=== PATIENT | male | born 1970 | race Caucasian/White ===

== ENCOUNTER 2017-12-13 18:20 | Emergency (ER) | payer BC ==
[2017-12-13 21:03] LABS: ABS Basophils 0 10^3/ul (0-0.2); ABS Eosinophils 0 10^3/ul (0-0.6); ABS Lymphocytes 1.3 10^3/ul (1.0-4.8); ABS Monocytes 0.4 10^3/ul (0-0.8); ABS Neutrophils 5.1 10^3/ul (1.5-7.7); ABS Nucleated RBC 0 10^3/ul; Eosinophil % 0 % (0-6); Hematocrit 42 % (42-52); Hemoglobin 13.7 g/dl (14.0-18.0); Lymphocyte % 19.2 % (25-47); Mean Corpuscular HGB Conc 33 g/dl (31-36); Mean Corpuscular Hemoglobin 26 pg (27-31); Mean Corpuscular Volume 80 fL (80-94); Mean Platelet Volume 7.7 um3 (7.4-10.4); Nucleated Red Blood Cells % 0; Platelet Count 257 10^3/ul (150-450); Red Blood Count 5.25 10^6/ul (4.00-5.40); Red Cell Distribution Width 14 % (10.5-15); White Blood Count 6.8 10^3/ul (3.5-10.8)
[2017-12-13 21:09] LABS: INR 0.94 (0.77-1.02)
--- NOTE | 2017-12-13 21:29 | ED ---
HPI Chest Pain - HPI Summary HPI Summary: Patient complains of intermittent chest tightness usually worse at night 2 weeks. Also complains of recurrent back pain and current exacerbation of same. Patient went to primary care for evaluation of back pain exacerbation and was sent to the ED for further evaluation of chest pain. Chest tightness is on left side, lasts about 10 minutes, no radiations, new onset, not related to exertion. Denies active chest pain at this time. Back pain is bilateral low back pain, denies radiation down bilateral lower extremities, incontinence, urinary retention. History of same pain. Denies fever, cough, sore throat, SOB , N/V/D, abdominal pain, change in urine, change in BM. Admits to significant increase in recent stress. Denies any CP or SOB with exertion, or decrease in endurance during exertion. Med history is none. Denies prior cardiac history. Positive family cardiac history. Denies smoking, EtOH, illegal drug use. - History of Current Complaint Chief Complaint: EDChestPainROMI Time Seen by Provider: 12/13/17 20:33 Hx Obtained From: Patient Onset/Duration: Started Weeks Ago Timing: Intermittent, Lasting Minutes Initial Severity: Mild Current Severity: None Pain Intensity: 0 Pain Scale Used: 0-10 Numeric Chest Pain Location: Left Anterior Chest Pain Radiates: No Character: Tightness Aggravating Factor(s): Other: Alleviating Factor(s): Nothing Associated Signs and Symptoms: Positive: Chest Pain, Anxiety - Allergy/Home Medications Allergies/Adverse Reactions: Allergies Allergy/AdvReac Type Severity Reaction Status Date / Time No Known Allergies Allergy Verified 12/13/17 21:16 PMH/Surg Hx/FS Hx/Imm Hx Endocrine/Hematology History: Denies: Hx Anticoagulant Therapy, Hx Diabetes Cardiovascular History: Denies: Hx Cardiac Arrest, Hx Hypertension, Hx Pacemaker/ICD History: Denies: Hx Dialysis, Hx Renal Disease - HAS HAD KIDNEY STONES Sensory History: Denies: Hx Hearing Aid Neurological History: Denies: Hx CVA Psychiatric History: Denies: Hx Panic Disorder - Surgical History Surgery Procedure, Year, and Place: APPENDIX - Immunization History Immunizations Up to Date: Yes Infectious Disease History: No Infectious Disease History: Denies: Traveled Outside the [place] in Last 30 Days - Social History Alcohol Use: None Substance Use Type: Reports: None Smoking Status (MU): Never Smoked Tobacco Review of Systems Constitutional: Negative Eyes: Negative ENT: Negative Positive: Chest Pain Respiratory: Negative Gastrointestinal: Negative Genitourinary: Negative Musculoskeletal: Negative Skin: Negative Neurological: Negative Psychological: Normal All Other Systems Reviewed And Are Negative: Yes Physical Exam - Summary Physical Exam Summary: No pain with palpation of lower back. No ecchymosis, erythema, swelling, deformity noted to lower back. Triage Information Reviewed: Yes Vital Signs On Initial Exam: Initial Vitals Temp Pulse Resp BP Pulse Ox 98.6 F 78 16 138/70 99 12/13/17 18:23 12/13/17 18:23 12/13/17 18:23 12/13/17 18:23 12/13/17 18:23 Vital Signs Reviewed: Yes Appearance: Positive: Well-Appearing Skin: Positive: Warm Head/Face: Positive: Normal Head/Face Inspection Eyes: Positive: Normal Neck: Positive: Supple Respiratory/Lung Sounds: Positive: Clear to Auscultation Cardiovascular: Positive: Normal Abdomen Description: Positive: Nontender Musculoskeletal: Positive: Normal Neurological: Positive: Normal Psychiatric: Positive: Normal AVPU Assessment: Alert - [place] Coma Scale Best Eye Response: 4 - Spontaneous Best Motor Response: 6 - Obeys Commands Best Verbal Response: 5 - Oriented Coma Scale Total: 15 Diagnostics - Vital Signs Vital Signs Temp Pulse Resp BP Pulse Ox 12/13/17 18:23 98.6 F 78 16 138/70 99 - Laboratory Lab Results: Lab Results 12/13/17 12/13/17 12/13/17 Range/Units 20:47 20:47 20:47 WBC 6.8 (3.5-10.8) 10^3/ul RBC 5.25 (4.00-5.40) 10^6/ul Hgb 13.7 L (14.0-18.0) g/dl Hct 42 (42-52) % MCV 80 (80-94) fL MCH 26 L (27-31) pg MCHC 33 (31-36) g/dl RDW 14 (10.5-15) % Plt Count 257 (150-450) 10^3/ul MPV 7.7 (7.4-10.4) um3 Neut % (Auto) 75.2 (38-83) % Lymph % (Auto) 19.2 L (25-47) % Tate % (Auto) 5.4 (0-7) % Eos % (Auto) 0 (0-6) % Baso % (Auto) 0.2 (0-2) % Absolute Neuts (auto) 5.1 (1.5-7.7) 10^3/ul Absolute Lymphs (auto) 1.3 (1.0-4.8) 10^3/ul Absolute Monos (auto) 0.4 (0-0.8) 10^3/ul Absolute Eos (auto) 0 (0-0.6) 10^3/ul Absolute Basos (auto) 0 (0-0.2) 10^3/ul Absolute Nucleated RBC 0 10^3/ul Nucleated RBC % 0 INR (Anticoag Therapy) 0.94 (0.77-1.02) Sodium Pending Potassium Pending Chloride Pending Carbon Dioxide Pending Anion Gap Pending BUN Pending Creatinine Pending Est GFR ( Amer) Pending Est GFR (Non-Af Amer) Pending BUN/Creatinine Ratio Pending Glucose Pending Calcium Pending Total Bilirubin Pending AST Pending ALT Pending Alkaline Phosphatase Pending Troponin I 0.00 (<0.04) ng/mL Total Protein Pending Albumin Pending Globulin Pending Albumin/Globulin Ratio Pending Result Diagrams: 12/13/17 20:47 12/13/17 20:47 Lab Statement: Any lab studies that have been ordered have been reviewed, and results considered in the medical decision making process. - Radiology cxr Xray Interpretation: No Acute Changes Radiology Interpretation Completed By: ED Physician Chest Pain Course/Dx - Course Course Of Treatment: Patient complains of intermittent chest tightness usually worse at night 2 weeks. Also complains of recurrent back pain and current exacerbation of same. Patient went to primary care for evaluation of back pain exacerbation and was sent to the ED for further evaluation of chest pain. Chest tightness is on left side, lasts about 10 minutes, no radiations, new onset, not related to exertion. Denies active chest pain at this time. Back pain is bilateral low back pain, denies radiation down bilateral lower extremities, incontinence, urinary retention. History of same pain. Denies fever, cough, sore throat, SOB, N/V/D, abdominal pain, change in urine, change in BM. Admits to significant increase in recent stress. Denies any CP or SOB with exertion, or decrease in endurance during exertion. Med history is none. Denies prior cardiac history. Positive family cardiac history. Denies smoking, EtOH, illegal drug use. Physical exam:No pain with palpation of lower back. No ecchymosis, erythema, swelling, deformity noted to lower back. Vital signs normal. EKG unremarkable. Chest x-ray unremarkable. Labs unremarkable. Chest pain nonexertional. More likely related to increasing recent stress. Back pain likely muscle spasm. - Diagnoses Provider Diagnoses: Atypical chest pain, Anxiety, Back pain Discharge - Sign-Out/Discharge Documenting (check all that apply): Patient Departure - Discharge Plan Condition: Stable Disposition: HOME Prescriptions: hydrOXYzine pamoate [Vistaril] 50 - 100 mg PO BID PRN 15 Days #30 capsule PRN Reason: Anxiety predniSONE TAB* [Deltasone 20 MG TAB*] 40 mg PO DAILY 5 Days #5 tab Patient Education Materials: Acute Low Back Pain (ED), Anxiety (ED) Print Language: BENGALI Forms: *Work Release Referrals: Josiah Snowden MD [Primary Care Provider] - Additional Instructions: Follow-up with primary care. Return to the ED for any new or worsening symptoms - Billing Disposition and Condition Condition: STABLE Disposition: Home
[2017-12-13 22:06] LABS: EGFR Non-African American 110.9 (>60)
[2017-12-13] MEDS ORDERED: predniSONE TAB* 20 MG PO ONE (22:30)
[2017-12-13 22:35] VITALS: BP 120/76
--- NOTE | 2017-12-14 08:08 | RAD ---
HISTORY: cp COMPARISONS: February 05, 2010 VIEWS: 1: frontal portable view of the chest at 8:54 AM. The patient is slightly obliqued to the right. FINDINGS: LINES AND TUBES: None. CARDIOMEDIASTINAL SILHOUETTE: The cardiomediastinal silhouette is normal for portable technique. PLEURA: The costophrenic angles are sharp. No pleural abnormalities are noted. LUNG PARENCHYMA: The lungs are clear. ABDOMEN: The upper abdomen is clear. There is no subphrenic gas. BONES AND SOFT TISSUES: No bone or soft tissue abnormalities are noted. IMPRESSION: NO ACTIVE CARDIOPULMONARY DISEASE. R0
== END 2017-12-13 22:34 | disposition home or self-care (01) ==
LOC: ED 18:20
DX: R07.89 Other chest pain (principal); F41.9 Anxiety disorder, unspecified; M54.9 Dorsalgia, unspecified; Z82.49 Family history of ischemic heart disease and other diseases of the circulatory system
CPT/HCPCS: 36415; 71045; 80053; 83880; 84484; 85025; 85610; 93005; 99282

== ENCOUNTER 2019-06-12 05:22 | Emergency (ER) | payer BC, OTHER ==
[2019-06-12] MEDS ORDERED: Ibuprofen TAB* 600 MG PO ONE (05:39)
[2019-06-12] MEDS ORDERED: Tetan/Diph/Pertus SYR(Tdap)* 0.5 ML SYR(BOOSTRIX) use SYR contains LATEX IM ONE (05:39)
[2019-06-12] MEDS ORDERED: Lidocaine 1% MPF ** 5 ML VIAL INJ ONE ×2 (05:39→07:42)
--- NOTE | 2019-06-12 05:40 | ED ---
Laceration/Wound HPI - HPI Summary HPI Summary: Patient is a 48-year-old male who presents emergency department for right hand injury that occurred today. Patient works at [employer] and was passing dose through a large roller when his left second and third digits extremity got caught in roller. Unaware of last tetanus immunization. No past medical history. Symptoms are mild in severity. Moving digits makes symptoms worse. Nothing makes symptoms better. - History of Current Complaint Stated Complaint: FINGER INJURY PER PT Hx Obtained From: Patient Pain Intensity: 10 - Allergy/Home Medications Allergies/Adverse Reactions: Allergies Allergy/AdvReac Type Severity Reaction Status Date / Time No Known Allergies Allergy Verified 12/13/17 21:16 Home Medications: Home Medications Cephalexin CAP* [Keflex CAP*] 500 mg PO BID #20 cap 06/12/19 [Rx] DOXYcycline CAP(*) [DOXYcycline 100MG CAP(*)] 100 mg PO BID 06/12/19 [History Confirmed 06/12/19] PMH/Surg Hx/FS Hx/Imm Hx Previously Healthy: Yes Endocrine/Hematology History: Denies: Hx Anticoagulant Therapy, Hx Diabetes Cardiovascular History: Denies: Hx Cardiac Arrest, Hx Hypertension, Hx Pacemaker/ICD History: Denies: Hx Dialysis, Hx Renal Disease Sensory History: Denies: Hx Hearing Aid Neurological History: Denies: Hx CVA Psychiatric History: Denies: Hx Panic Disorder - Surgical History Surgery Procedure, Year, and Place: APPENDECTOMY Infectious Disease History: No Infectious Disease History: Denies: Traveled Outside the [place] in Last 30 Days - Family History Known Family History: Positive: Non-Contributory - Social History Occupation: Employed Full-time Lives: With Family Alcohol Use: None Substance Use Type: Reports: None Smoking Status (MU): Never Smoked Tobacco Review of Systems Positive: Other - pain second third digits of right hand Positive: Other - laceration secondary digits of right hand Neurological/Mental Status: Negative Negative: Weakness, Paresthesia, Numbness All Other Systems Reviewed And Are Negative: Yes Physical Exam Triage Information Reviewed: Yes Vital Signs On Initial Exam: Initial Vitals Temp Pulse Resp BP Pulse Ox 97.5 F 62 20 133/84 99 06/12/19 05:24 06/12/19 05:24 06/12/19 05:24 06/12/19 05:24 06/12/19 05:24 Vital Signs Reviewed: Yes Appearance: Positive: Pain Distress - Pt. pacing around room, appears in pain but nontoxic. Skin: Positive: Warm, Dry Head/Face: Positive: Normal Head/Face Inspection Eyes: Positive: Normal, EOMI Neck: Positive: Supple Musculoskeletal: Positive: Other - 2nd digit right hand: Nail bed exposed. 2cm irregular laceration noted to palmar aspect distally. Full ROM of digit. 3rd digit right hand. Avulsion of skin overlying nailbed but nailbed is intact. 3cm irregular laceration noted to distal palmar aspect of digit. Full ROM. Mild active bleeding. Neurological: Positive: Normal, CN Intact II-III Psychiatric: Positive: Affect/Mood Appropriate Procedures - Sedation Patient Received Moderate/Deep Sedation with Procedure: No - Splinting Right Upper Extremity Hand-Made Type: orthoglass Splint: volar Pre-Proc Neuro Vasc Exam: normal Post-Proc Neuro Vasc Exam: normal Splint Applied by Provider: Diego Miller - Laceration/Wound Repair 1 Location: upper extremity - 3rd digit Description: Irregular Anesthesia: Local, Digital, 1.0%, Lido Length, Depth and Shape: 2cm irregular Betadine Prep?: Yes Irrigated w/ Saline (ccs): 200 Laceration/Wound Explored: clean Closure: Single Layer Debridement: minimal Suture Type: Nylon Number of Sutures: 10 - Nailbed reattached Layer Closure?: No Sterile Dressing Applied?: Yes 2 Location: upper extremity - 2nd digit Description: Irregular Anesthesia: Local, Digital, Lido Length, Depth and Shape: 3cm irregular Betadine Prep?: Yes Irrigated w/ Saline (ccs): 200 Laceration/Wound Explored: clean Closure: Single Layer Debridement: minimal Suture Type: Nylon Number of Sutures: 5 Layer Closure?: No Sterile Dressing Applied?: Yes Diagnostics - Vital Signs Vital Signs Temp Pulse Resp BP Pulse Ox 06/12/19 05:24 97.5 F 62 20 133/84 99 - Laboratory Lab Statement: Any lab studies that have been ordered have been reviewed, and results considered in the medical decision making process. Laceration Repair Course/Dx - Course Course Of Treatment: Patient with extensive lacerations from crush injury to second and third digits of right hand. Tetanus updated. Digital blocks placed for pain control as well as ibuprofen. Wounds were extensively irrigated and cleaned. Nailbeds repaired the lacerations closed. Volar splint placed for comfort. Patient notes that he is currently on doxycycline for infection around his right second male. He notes that infection was not improving with antibiotics. Patient placed on Keflex. No obvious signs of infection on exam or signs of abscess to digit. We'll patient follow-up with orthopedic clinic Monday or Monday for wound check. Suture removal in 10-14 days. The Keflex prescribed. Ice and elevate intermittently. Ibuprofen or Tylenol for pain as directed. Work excuse given. We'll return to the ER for redness, swelling or drainage from wound. Patient understands and agrees with plan. - Differential Dx Differental Diagnoses: Avulsion, Laceration, Tendon Laceration - Clinical Impression Provider Diagnoses: Laceration of finger nail bed, Nailbed injury, Finger laceration Discharge ED - Sign-Out/Discharge Documenting (check all that apply): Patient Departure - Discharge Plan Condition: Improved Disposition: HOME Prescriptions: Cephalexin CAP* [Keflex CAP*] 500 mg PO BID #20 cap Patient Education Materials: Finger Laceration (ED) Forms: *Work Release Referrals: Josiah Snowden MD [Primary Care Provider] - Germaine Stewart MD [Medical Doctor] - Additional Instructions: Please schedule an appointment with the orthopedic clinic for wound check for Monday or Monday Suture removal in 10-14 days Keep wound clean and dry Daily dressing changes Wash with warm soap and water in the morning and night Apply over the counter antibiotic ointment Take new antibiotic as directed Ice and elevate hand 400mg-600mg ibuprofen every 6 hours as directed for pain Return to ER for redness, swelling, drainage from wound or if concerned - Billing Disposition and Condition Condition: IMPROVED Disposition: Home
[2019-06-12] MEDS ORDERED: Lidocaine 1% MPF ** 5 ML VIAL ONE ×2 (05:47→06:48)
--- OUTSIDE RECORDS SUMMARY | 2019-06-12 06:50 | XMS REPORT | Summary of Care ---
:1970 Author Organization [facility] Address [address] [facility] [place] [address] Care Team Providers Name Role Phone Josiah Snowden MD Primary Care Provider Reason for Referral Refer to Department Only (Routine) Status Reason Specialty Diagnoses / Referred By Referred To Procedures Contact Contact Closed Physical Therapy Diagnoses Quadriceps tendinitis Claus Fontenot, [facility] [address] [place] [address] Reason for Visit Reason Comments New Patient x rays left knee uncomfortable feeling about 1.5 months Encounter Details Date Type Department Care Team Description 04/23/2019 Office Visit [facility] - Claus Fontenot MD Quadriceps tendinitis [address] (Primary Dx) [address] [place] [address] [place] [address] [phone] Allergies No Known Allergiesdocumented as of this encounter (statuses as of 04/24/2019) Medications Medication Sig Dispensed Refills Start Date End Date Status IBUPROFEN 200 PO Take 200 mg by mouth 0 Active NEEDED. documented as of this encounter (statuses as of 04/24/2019) Active Problems No known active problemsdocumented as of this encounter (statuses as of 2019) Social History Tobacco Use Types Packs/Day Years Used Date Never Smoker Smokeless Tobacco: Never Used Sex Assigned at Date Recorded Not on file Job Start Date Occupation Industry Not on file Not on file Not on file Travel History Travel Start Travel End No recent travel history available. documented as of this encounter Last Filed Vital Signs Vital Sign Reading Time Taken Comments Blood Pressure 126/78 04/23/2019 8:52 AM EST Pulse - - Temperature - - Respiratory Rate - - Oxygen Saturation - - Inhaled Oxygen Concentration - - Weight 70.3 kg (155 lb) 04/23/2019 8:52 AM EST Height 172.7 cm (5' 8") 04/23/2019 8:52 AM EST Body Mass Index 23.57 04/23/2019 8:52 AM EST documented in this encounter Progress Notes Claus Fontenot MD - 04/23/2019 8:45 AM EST Name: Jennifer Laguna : 1970 Date of Service: 04/23/2019 Referring Provider: Self-Referred Primary Care Provider: Josiah Snowden Chief Complaint Patient presents with New Patient x rays left knee uncomfortable feeling about 1.5 months History of Present Illness: Jennifer Laguna is a 48-y.o. male who presents for a new visit. The patient presents with left knee pain and problem. Current symptoms include: pain: intensity 4/10. Onset of the symptoms was several weeks ago. Inciting event: no known event. Aggravating symptoms:going up and down stairs, walking, pivoting. Patient's overall course: stable. Patient has had no prior lower extremity problems. 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 No pertinent surgical history. Current Outpatient Medications Medication Sig IBUPROFEN 200 PO Take 200 mg by mouth NEEDED. No current facility-administered medications for this visit. . No Known Allergies Social History Socioeconomic History Marital status: Spouse name: Not on file Number of children: Not on file Years of education: Not on file Highest education level: Not on file Occupational History Not on file Social Needs Financial resource strain: Not on file Food insecurity Worry: Not on file Inability: Not on file Transportation needs Medical: Not on file Non-medical: Not on file Tobacco Use Smoking status: Never Smoker Smokeless tobacco: Never Used Substance and Sexual Activity Alcohol use: Not on file Drug use: Not on file Sexual activity: Not on file Lifestyle Physical activity Days per week: Not on file Minutes per session: Not on file Stress: Not on file Relationships Social connections Talks on phone: Not on file Gets together: Not on file Attends faith service: Not on file Active member of club or organization: Not on file Attends meetings of clubs or organizations: Not on file Relationship status: Not on file Intimate partner violence Fear of current or ex partner: Not on file Emotionally abused: Not on file Physically abused: Not on file Forced sexual activity: Not on file Other Topics Concern Not on file Social History Narrative Not on file Family History Problem Relation Age of Onset Heart Disease Mother High Blood Pressure Mother Arthritis Mother Diabetes Father ROS: Review of systems intake completed by clinical staff. I have reviewed and agree with their documentation. Physical Examination: BP 126/78 | Ht 5' 8" (1.727 m) | Wt 155 lb (70.3 kg) | BMI 23.57 kg/m Patient was examined in the supine position. He has a minimal effusion. Patient has extension 0, flexion 130. Patient has tenderness on palpation of the superior pole of the patella. Patient has no tenderness on palpation of thelateral and medial joint line. Patient has Negative Melissa's test with respect to the medial and lateral joint line. Patient has Negative Fernando's test at 25 - 30 degrees flexion. Patient has Negative Tong's test. . Patient walks without an antalgic gait with respect to the left extremity. X-Ray: X-rays of left knee, Ap, lateral skyline and notch views were obtained. minimal changes are noted in the medial compartment;minimal changes are noted in the lateral compartment;minimal are notedin the patella-femoral compartment. Impression: Patella tendinitis Plan: Refer to p.t.; follow up in 4 weeks All questions were answered. Work up: p.t. Follow up: In 4 weeks with Chelsea Noriega. Author: Claus Fontenot MD 04/23/2019 09:06 documented in this encounter Plan of Treatment Date Type Specialty Care Team Description 05/23/2019 Office Visit Orthopedics Alena Noriega, [address] [place] [address] [phone] Name Type Priority Associated Diagnoses Order Schedule REFER TO PHYSICAL Referral Routine Quadriceps tendinitis Expected: 2019, THERAPY / REHAB Expires: 04/22/2020 Health Maintenance Due Date Last Done Comments DTaP/Tdap/Td Vaccines (1 - Tdap) 10/09/1983 DEPRESSION SCREENING 1984 HIV SCREENING 10/09/1987 LIPID DISORDER SCREENING 1990 INFLUENZA VACCINE (#1) 2018 HEPATITIS A IMMUNIZATION SERIES Aged Out No longer eligible based on patient's age to complete this topic HPV IMMUNIZATION SERIES Aged Out No longer eligible based on patient's age to complete this topic MENINGOCOCCAL VACCINE IMM Aged Out No longer eligible based on patient's age to complete this topic PNEUMOCOCCAL 0-64 YRS Aged Out No longer eligible based on patient's age to complete this topic documented as of this encounter Results Not on filedocumented in this encounter Visit Diagnoses Diagnosis Quadriceps tendinitis Other synovitis and tenosynovitis documented in this encounter documented as of this encounter
[2019-06-12 07:53] VITALS: BP 120/82
== END 2019-06-12 07:52 | disposition home or self-care (01) ==
LOC: ED 05:22
DX: S61.310A Laceration without foreign body of right index finger with damage to nail, initial encounter (principal); S61.312A Laceration without foreign body of right middle finger with damage to nail, initial encounter; W31.89XA Contact with other specified machinery, initial encounter; Y93.G1 Activity, food preparation and clean up; Y92.89 Other specified places as the place of occurrence of the external cause; Y99.0 Civilian activity done for income or pay; Z32.3 Encounter for childcare instruction
CPT/HCPCS: 12032; 90471; 90715; 99282; A9270-GY

== ENCOUNTER 2024-04-09 15:01 | Observation (INO) ==
[2024-04-09] MEDS: Lactated Ringers 1000 ml BAG IV.FLUID IV ONE (15:31)
[2024-04-09 15:44] LABS: ABS Basophils 0.1 10^3/uL (0.0-0.1); ABS Eosinophils 0.2 10^3/uL (0.0-0.5); ABS Lymphocytes 2.4 10^3/uL (1.0-4.8); ABS Monocytes 0.5 10^3/uL (0.0-1.1); Eosinophil % 2.6 %; Hematocrit 44.1 % (38-53); Hemoglobin 14.7 g/dL (13.2-16.3); Lymphocyte % 39.1 %; Mean Corpuscular Hemoglobin 26.6 pg (27-33); Mean Corpuscular Hgb Conc 33.3 g/dL (31-36); Mean Corpuscular Volume 80.1 fL (80-97); Mean Platelet Volume 7.6 fL (7.5-11.2); Platelet Count 264 10^3/uL (150-450); Red Cell Distribution Width 13.4 % (12-17)
[2024-04-09 15:55] LABS: INR 1.04 (0.85-1.14)
[2024-04-09 17:05] LABS: High Sensitivity Troponin 1 Hr 3 pg/mL (<20)
[2024-04-09 17:41] LABS: Albumin 4.5 g/dL (3.5-5.7); Albumin/Globulin Ratio 1.7 (1-3); Creatinine, Serum 1.01 mg/dL (0.67-1.17); Globulin 2.6 g/dL (2-4); Potassium 3.9 mmol/L (3.5-5.0); Total Bilirubin 0.4 mg/dL (0.2-1.0); Total Protein 7.1 g/dL (6.4-8.9)
[2024-04-09] MEDS: Metoprolol Tartrate 5 mg VIAL 5 ml VIAL (1 mg/ml) IV ONE (17:59)
[2024-04-09 18:59] LABS: Magnesium 2.1 mg/dL (1.9-2.7)
[2024-04-09 19:08] LABS: TSH Ultra Thyroid Stim Horm 1.2 mcIU/mL (0.34-5.60)
[2024-04-09] MEDS ORDERED: Adenosine 3 MG/ML 2 ml VIAL (6 mg) ONE (21:04)
[2024-04-10 07:11] LABS: Creatinine, Serum 0.82 mg/dL (0.67-1.17); Potassium 4.1 mmol/L (3.5-5.0); eGFR CKD-EPI 106.4 (>60)
[2024-04-10 10:19] VITALS: BP 117/72
== END 2024-04-10 13:30 | disposition home or self-care (01) ==
LOC: EDHOLD 15:01 → ED 15:01 → MEDTELE 21:23
PROVIDERS: ADMIT Student in an Organized Health Care Education/Training Program; ATTEND Student in an Organized Health Care Education/Training Program